=== PATIENT | male | born 1965 | race Caucasian/White ===

== ENCOUNTER 2016-12-21 11:28 | Inpatient (IN) | payer OTHER ==
[2016-12-21 11:51] VITALS: BMI 28.5
--- NOTE | 2016-12-21 12:02 | HP ---
COWS - Scale Resting Pulse: 0= SD 80 or Below Sweatin=Flushed/Facial Moisture Restless Observation: 3= Extraneous Movement Pupil Size: 2= Moderately Dilated Bone or Joint Aches: 2= Severe Diffuse Aches Runny Nose/ Eye Tearin= Runny Nose/Eyes GI Upset > 30mins: 2= Nausea/Diarrhea Tremor Observation: 2= Slight Tremor Visible Yawning Observation: 2= >3x During Session Anxiety or Irritability: 2=Irritable/Anxious Goose Flesh Skin: 0=Smooth Skin COWS Score: 19 CIWA Score - CIWA Score Nausea/Vomitin Muscle Tremors: 3 Anxiety: 3 Agitation: 3 Paroxysmal Sweats: 2 Orientation: 0-Oriented Tacttile Disturbances: 2-Mild Itch/Numbness/Burn Auditory Disturbances: 2-Mild Harshness/Frighten Visual Disturbances: 2-Mild Sensitivity Headache: 2-Mild CIWA-Ar Total Score: 22 Admission ROS BHS - HPI Chief Complaint: i need help to stop using street methadone and alcohol Allergies/Adverse Reactions: Allergies Allergy/AdvReac Type Severity Reaction Status Date / Time No Known Allergies Allergy Verified 12/21/16 12:53 History of Present Illness: this 51 years old [address] with [address] dependence and alcohol dependence,seeking help to stop,last treatment at [facility] 3 weeks ago several admissions in detox but keep relapsing history of hepatitis c insomnia longest period of sobriety 3 years on augmentine for abrasion injury to left upper arm Exam Limitations: No Limitations - Ebola screening Have you traveled outside of the country in the last 21 days: No Have you had contact with anyone from an Ebola affected area: No Have you been sick,other than usual withdrawal symptoms: No Do you have a fever: No - Review of Systems Constitutional: Chills, Diaphoresis, Loss of Appetite, Malaise, Night Sweats, Changes in sleep, Weakness EENT: reports: Tearing, Nose Congestion Respiratory: reports: No Symptoms reported Cardiac: reports: No Symptoms Reported GI: reports: Diarrhea, Nausea, Vomiting, Abdominal cramping : reports: No Symptoms Reported Musculoskeletal: reports: Back Pain, Joint Pain, Muscle Pain, Joint Stiffness Integumentary: reports: Dryness Neuro: reports: Headache, Tremors Endocrine: reports: No Symptoms Reported Hematology: reports: No Symptoms Reported Psychiatric: reports: No Sypmtoms Reported, Judgement Intact, Mood/Affect Appropiate, other (insomnia) Patient History - Patient Medical History Hx Anemia: No Hx Asthma: No Hx Chronic Obstructive Pulmonary Disease (COPD): No Hx Cancer: No Hx Cardiac Disorders: No Hx Congestive Heart Failure: No Hx Hypertension: No Hx Hypercholesterolemia: No Hx Pacemaker: No HX Cerebrovascular Accident: No Hx Seizures: No Hx Dementia: No Hx Diabetes: No Hx Gastrointestinal Disorders: No Hx Liver Disease: No Hx Genitourinary Disorders: No Hx Sexually Transmitted Disorders: No Hx Renal Disease (ESRD): No Hx Thyroid Disease: No Hx Human Immunodeficiency Virus (HIV): No (last 06/24 negative) Hx Hepatitis C: Yes (monitor by pmd) Hx Depression: No Hx Suicide Attempt: No Hx Bipolar Disorder: No Hx Schizophrenia: No Other Medical History: insomnia,nosucidal,no homicidal - Patient Surgical History Past Surgical History: No - PPD History Previous Implant?: Yes Documented Results: Negative w/o proof Implanted On Prior [facility] Admission?: No PPD to be Administered?: Yes - Smoking Cessation Smoking history: Never smoked Hx Chewing Tobacco Use: No - Substance & Tx. History Hx Alcohol Use: Yes Hx Substance Use: Yes Substance Use Type: Alcohol, Opiates Hx Substance Use Treatment: Yes ([facility] 3 weeks ago) Family Disease History - Family Disease History Family Disease History: Other: Father (alcohol,), Brother (alcohol, ) Admission Physical Exam [facility] - Vital Signs Vital Signs: Vital Signs - 24 hr 12/21/16 11:49 Temperature 97.2 F L Pulse Rate 67 Respiratory 20 Rate Blood Pressure 116/67 - Physical General Appearance: Yes: Moderate Distress, Tremorous, Irritable, Sweating, Anxious HEENTM: Yes: Hearing grossly Normal, Normal ENT Inspection, CAL, Pharynx Normal Respiratory: Yes: Lungs Clear, Normal Breath Sounds, No Respiratory Distress Neck: Yes: Within Normal Limits, Supple, Trachea in good position Breast: Yes: Within Normal Limits Cardiology: Yes: Within Normal Limits, Regular Rhythm, Regular Rate, S1, S2 Abdominal: Yes: Within Normal Limits, Normal Bowel Sounds, Non Tender, Flat, Soft Genitourinary: Yes: Within Normal Limits Back: Yes: Muscle Spasm Musculoskeletal: Yes: Back pain, Joint Stiffness, Muscle Pain Extremities: Yes: Tremors, Other (abasion of left upper arm) Neurological: Yes: Fully Oriented, Alert, Motor Strength 5/5 Integumentary: Yes: Dry (abrasion of left upper arm) Lymphatic: Yes: Within Normal Limits - Diagnostic (1) Alcohol dependence with uncomplicated withdrawal Current Visit: Yes Status: Acute (2) Opioid dependence with withdrawal Current Visit: Yes Status: Acute (3) Insomnia Current Visit: Yes Status: Acute (4) Hepatitis C Current Visit: Yes Status: Acute (5) Abrasion of left upper arm Current Visit: Yes Status: Acute Cleared for Admission [facility] - Detox or Rehab [facility] Level of Care: Medically Managed Detox Regimen/Protocol: Methadone/Librium [facility] Breath Alcohol Content Breath Alcohol Content: 0.005 Urine Drug Screen - Results Drug Screen Negative: No Urine Drug Screen Results: BZO-Benzodiazepines, MTD-Methadone
[2016-12-21] MEDS ORDERED: guaiFENesin/D-METHORPHAN HB 10 ML UNIT-DOSE CUPS PO PRN (13:19)
[2016-12-21] MEDS ORDERED: chlordiazePOXIDE HCL 25 MG CAPSULE PO ONE (13:19)
[2016-12-21] MEDS ORDERED: MENTHOL/PHENOL 1 EACH UD MM PRN (13:19)
[2016-12-21] MEDS ORDERED: METHADONE HCL 10 MG TABLET (FOR DETOX USE ONLY) PO ONE ×2 (13:19→23:00)
[2016-12-21] MEDS ORDERED: LOPERAMIDE HCL 2 MG CAPSULE PO PRN (13:19)
[2016-12-21] MEDS ORDERED: chlordiazePOXIDE HCL 25 MG CAPSULE PO PRN (13:19)
[2016-12-21] MEDS ORDERED: P-EPHED 60MG/TRIPROLIDI 2.5MG TABLET PO PRN (13:19)
[2016-12-21] MEDS ORDERED: MAG HYDROX/AL HYDROX/SIMETH 30 ML UNIT-DOSE CUP PO PRN (13:19)
[2016-12-21] MEDS ORDERED: MAGNESIUM CITRATE 300 ML BOTTLE PO PRN (13:19)
[2016-12-21] MEDS ORDERED: hydrOXYzine PAMOATE 25 MG CAPSULE (FP) PO PRN (13:19)
[2016-12-21 15:58] LABS: URINE APPEARANCE CLEAR; URINE BILIRUBIN NEGATIVE (NEGATIVE); URINE BLOOD NEGATIVE (NEGATIVE); URINE COLOR YELLOW; URINE GLUCOSE (UA) NEGATIVE (NEGATIVE); URINE KETONE NEGATIVE (NEGATIVE); URINE LEUK ESTERASE NEGATIVE (NEGATIVE); URINE NITRITE NEGATIVE (NEGATIVE); URINE PROTEIN NEGATIVE (NEGATIVE); URINE UROBILINOGEN 4.0 E.U/dl mg/dL (0.2-1.0)
[2016-12-21] MEDS: chlordiazePOXIDE HCL 25 MG CAPSULE PO SCH ×2 (17:40→22:29)
[2016-12-21] MEDS: AMOX TR/POT CLAV 875MG/125MG TABLETS (FP) PO SCH (17:42)
[2016-12-21] MEDS: BACITRACIN 15 GM TUBE TOPICAL OINTMENT TP SCH (22:28)
[2016-12-21] MEDS: THIAMINE HCL 100 MG TABLET (FP) PO SCH (22:29)
[2016-12-21] MEDS: diphenhydrAMINE HCL 50 MG CAPSULE PO PRN (22:29)
[2016-12-22] MEDS: chlordiazePOXIDE HCL 25 MG CAPSULE PO SCH ×4 (05:04→22:14)
[2016-12-22] MEDS: ACETAMINOPHEN 325 MG TABLET (FP) PO PRN (07:08)
--- NOTE | 2016-12-22 08:38 | CONSULT ---
[facility] Psychiatric Consult - Data Date of interview: 12/22/16 Admission source: [facility] Identifying data: This is 51 years old male with no psychiatric hospitalization history intoxiocated with: Alcohol and Opioids Substance Abuse History: - Smoking Cessation. Smoking history: Never smoked. Hx Chewing Tobacco Use: No. - Substance & Tx. History. Hx Alcohol Use: Yes. Hx Substance Use: Yes. Substance Use Type: Alcohol, Opiates. Hx Substance Use Treatment: Yes ([facility] 3 weeks ago) Medical History: HepCX+, history of MMTP, Psychiatric History: Patient reports history of depression, reports taking prior to admissionTrazodone 100mg po qhs, refusing to restart Trazodone during Detox protocol Physical/Sexual Abuse/Trauma History: Denies Additional Comment: Obnservation. Detox Unit Care [facility]Protoicol Mental Status Exam - Mental Status Exam Alert and Oriented to: Person Cognitive Function: Fair Patient Appearance: Unkempt Mood: Sad Affect: Flat Patient Behavior: Sedated Speech Pattern: Delayed Voice Loudness: Normal, Mildly Soft/Quiet Thought Process: Goal Oriented Thought Disorder: Being Controlled Hallucinations: Denies Suicidal Ideation: Denies Homicidal Ideation: Denies Insight/Judgement: Fair Sleep: Difficulty falling asleep Appetite: Weight loss Muscle strength/Tone: Mild Hypotonicity Gait/Station: Shuffling Additional Comments: Obnservation. Detox Unit Care [facility] Psychiatric Findings - Problem List (Dennis 1, 2,3) (1) Alcohol dependence with uncomplicated withdrawal Current Visit: Yes Status: Acute (2) Opioid dependence with withdrawal Current Visit: Yes Status: Acute (3) Drug-induced mood disorder Current Visit: Yes Status: Acute - Initial Treatment Plan Initial Treatment Plan: Obnservation. Detox Unit Care vProtoicol. Refusing medications
[2016-12-22] MEDS ORDERED: METHADONE HCL 10 MG TABLET (FOR DETOX USE ONLY) PO SCH (10:00)
[2016-12-22 10:01] LABS: MCH 32.5 pg (25.7-33.7); MCHC 34.8 g/dl (32.0-35.9); MEAN CELL VOLUME 93.3 fl (80-96); MEAN PLT VOLUME 8.8 fl (7.5-11.1); PLATELET COUNT 77 K/MM3 (134-434); RDW 15.1 % (11.9-15.9); WHITE BLOOD COUNT 2.1 K/mm3 (4.0-10.0)
[2016-12-22] MEDS: AMOX TR/POT CLAV 875MG/125MG TABLETS (FP) PO SCH ×2 (10:08→17:31)
[2016-12-22] MEDS: PRENATAL VITAMINS W/ FOLIC ACID TABLET (FP) PO SCH (10:08)
[2016-12-22 10:20] LABS: ALBUMIN 2.6 g/dl (3.4-5.0); ANION GAP 5 (8-16); CALCIUM 8.1 mg/dL (8.5-10.1); CO2 29 mmol/L (21-32); GLUCOSE,RANDOM 100 mg/dL (74-106)
[2016-12-22 10:24] LABS: ALK PHOS 103 U/L (45-117); BILIRUBIN,TOTAL 0.7 mg/dL (0.2-1.0); CREATININE 0.6 mg/dL (0.7-1.3); SGOT/AST 39 U/L (15-37); SGPT/ALT 28 U/L (12-78); TOT PROT 5.6 g/dl (6.4-8.2)
[2016-12-22] MEDS: BACITRACIN 15 GM TUBE TOPICAL OINTMENT TP SCH (12:38)
[2016-12-22] MEDS: BACITRACIN 0.9 GM PACKET TP SCH ×2 (12:42→22:14)
[2016-12-22] MEDS: MAGNESIUM HYDROX 2400MG/30ML ORAL SUSPENSION 30 ML CUP PO PRN (12:42)
--- NOTE | 2016-12-22 12:47 | EKG ---
Test Reason : Blood Pressure : / mmHG Vent. Rate : 069 BPM Atrial Rate : 069 BPM P-R Int : 166 ms QRS Dur : 098 ms QT Int : 438 ms P-R-T Axes : 052 036 027 degrees QTc Int : 469 ms NORMAL SINUS RHYTHM NORMAL ECG NO PREVIOUS ECGS AVAILABLE Confirmed by CIRO IVERSON MD ([id number]) on 12/22/2016 12:47:06 PM Referred By: Confirmed By:CIRO IVERSON MD
--- NOTE | 2016-12-22 14:30 | PN ---
[facility] CIWA - CIWA Score Nausea/Vomitin Muscle Tremors: 3 Anxiety: 4-Mod. Anxious/Guarded Agitation: 1-Slight > Activity Paroxysmal Sweats: 3 Orientation: 0-Oriented Tacttile Disturbances: 0-None Auditory Disturbances: 1-Very Mild Visual Disturbances: 2-Mild Sensitivity Headache: 0-None Present CIWA-Ar Total Score: 17 S COWS - Scale Resting Pulse: 0= [place] 80 or Below Sweatin= Chills/Flushing Restless Observation: 1= Difficult to Sit Still Pupil Size: 0= Normal to Room Light Bone or Joint Aches: 2= Severe Diffuse Aches Runny Nose/ Eye Tearin= Nasal Congestion GI Upset > 30mins: 1= Stomach Cramp Tremor Observation of Outstretched Hands: 2= Slight Tremor Visible Yawning Observation: 1= 1-2x During Session Anxiety or Irritability: 2=Irritable/Anxious Goose Flesh Skin: 3=Piloerection COWS Score: 14 [facility] Progress Note (SOAP) Subjective: Tremors, Constipation, Sweating, Body Aches. Objective: PT. A & O X 3, OBSERVED AMBULATING ON UNIT. NO ACUTE DISTRESS. Vital Signs Temperature 97.0 F L 12/22/16 14:06 Pulse Rate 63 12/22/16 14:06 Respiratory Rate 20 12/22/16 14:06 Blood Pressure 96/57 12/22/16 14:06 O2 Sat by Pulse Oximetry (%) Laboratory Tests 12/21/16 12/22/16 12/22/16 13:52 06:30 06:30 WBC 2.1 L RBC 3.69 L Hgb 12.0 Hct 34.4 L MCV 93.3 MCH 32.5 MCHC 34.8 RDW 15.1 Plt Count 77 L MPV 8.8 Sodium 142 Potassium 4.0 Chloride 108 H Carbon Dioxide 29 Anion Gap 5 L BUN 8 Creatinine 0.6 L Creat Clearance w eGFR > 60 Random Glucose 100 Calcium 8.1 L Total Bilirubin 0.7 AST 39 H ALT 28 Alkaline Phosphatase 103 Total Protein 5.6 L Albumin 2.6 L Urine Color Yellow Urine Appearance Clear Urine pH 6.0 Ur Specific [place] 1.015 Urine Protein Negative Urine Glucose (UA) Negative Urine Ketones Negative Urine Blood Negative Urine Nitrite Negative Urine Bilirubin Negative Urine Urobilinogen 4.0 e.u/dl Ur Leukocyte Esterase Negative RPR Titer 12/22/16 06:30 WBC RBC Hgb Hct MCV MCH MCHC RDW Plt Count MPV Sodium Potassium Chloride Carbon Dioxide Anion Gap BUN Creatinine Creat Clearance w eGFR Random Glucose Calcium Total Bilirubin AST ALT Alkaline Phosphatase Total Protein Albumin Urine Color Urine Appearance Urine pH Ur Specific [place] Urine Protein Urine Glucose (UA) Urine Ketones Urine Blood Urine Nitrite Urine Bilirubin Urine Urobilinogen Ur Leukocyte Esterase RPR Titer Nonreactive LABS NOTED. 12/22/16 14:26 Assessment: 12/22/16 14:27 WITHDRAWAL SYMPTOMS. Plan: CONTINUE DETOX.
[2016-12-22] MEDS: diphenhydrAMINE HCL 50 MG CAPSULE PO PRN (22:14)
[2016-12-22] MEDS: THIAMINE HCL 100 MG TABLET (FP) PO SCH (22:14)
[2016-12-23] MEDS: chlordiazePOXIDE HCL 25 MG CAPSULE PO SCH ×2 (05:53→10:03)
[2016-12-23] MEDS: MAGNESIUM HYDROX 2400MG/30ML ORAL SUSPENSION 30 ML CUP PO PRN (05:53)
[2016-12-23] MEDS: METHADONE HCL 5 MG TABLET (FOR DETOX USE ONLY) PO SCH (10:03)
[2016-12-23] MEDS: BACITRACIN 0.9 GM PACKET TP SCH ×2 (10:03→22:21)
[2016-12-23] MEDS: AMOX TR/POT CLAV 875MG/125MG TABLETS (FP) PO SCH ×2 (10:03→17:30)
[2016-12-23] MEDS: PRENATAL VITAMINS W/ FOLIC ACID TABLET (FP) PO SCH (10:03)
[2016-12-23] MEDS: DOCUSATE SODIUM 100 MG CAPSULE (FP) PO SCH ×2 (10:05→22:21)
--- NOTE | 2016-12-23 11:10 | PN ---
[facility] CIWA - CIWA Score Nausea/Vomitin-Mild Nausea/No Vomiting Muscle Tremors: 4-Moderate,w/Arms Extend Anxiety: 4-Mod. Anxious/Guarded Agitation: 2 Paroxysmal Sweats: 3 Orientation: 0-Oriented Tacttile Disturbances: 3-Moderate Itch/Numb/Burn Auditory Disturbances: 0-None Visual Disturbances: 1-Very Mild Sensitivity Headache: 0-None Present CIWA-Ar Total Score: 18 [facility] COWS - Scale Resting Pulse: 0= [place] 80 or Below Sweatin=Flushed/Facial Moisture Restless Observation: 1= Difficult to Sit Still Pupil Size: 0= Normal to Room Light Bone or Joint Aches: 2= Severe Diffuse Aches Runny Nose/ Eye Tearin= Nasal Congestion GI Upset > 30mins: 1= Stomach Cramp Tremor Observation of Outstretched Hands: 2= Slight Tremor Visible Yawning Observation: 1= 1-2x During Session Anxiety or Irritability: 2=Irritable/Anxious Goose Flesh Skin: 3=Piloerection COWS Score: 15 [facility] Progress Note (SOAP) Subjective: Tremors, Stomach cramping, Sweating, Body Aches, Constipation, nausea. Objective: PT. A & O X 3, OBSERVED AMBULATING ON UNIT. NO ACUTE DISTRESS. 12/23/16 11:07 Vital Signs Temperature 97.6 F 12/23/16 09:42 Pulse Rate 62 12/23/16 09:42 Respiratory Rate 18 12/23/16 09:42 Blood Pressure 98/58 12/23/16 09:42 O2 Sat by Pulse Oximetry (%) Laboratory Tests 12/21/16 12/22/16 12/22/16 13:52 06:30 06:30 WBC 2.1 L RBC 3.69 L Hgb 12.0 Hct 34.4 L MCV 93.3 MCH 32.5 MCHC 34.8 RDW 15.1 Plt Count 77 L MPV 8.8 Sodium 142 Potassium 4.0 Chloride 108 H Carbon Dioxide 29 Anion Gap 5 L BUN 8 Creatinine 0.6 L Creat Clearance w eGFR > 60 Random Glucose 100 Calcium 8.1 L Total Bilirubin 0.7 AST 39 H ALT 28 Alkaline Phosphatase 103 Total Protein 5.6 L Albumin 2.6 L Urine Color Yellow Urine Appearance Clear Urine pH 6.0 Ur Specific [place] 1.015 Urine Protein Negative Urine Glucose (UA) Negative Urine Ketones Negative Urine Blood Negative Urine Nitrite Negative Urine Bilirubin Negative Urine Urobilinogen 4.0 e.u/dl Ur Leukocyte Esterase Negative RPR Titer 12/22/16 06:30 WBC RBC Hgb Hct MCV MCH MCHC RDW Plt Count MPV Sodium Potassium Chloride Carbon Dioxide Anion Gap BUN Creatinine Creat Clearance w eGFR Random Glucose Calcium Total Bilirubin AST ALT Alkaline Phosphatase Total Protein Albumin Urine Color Urine Appearance Urine pH Ur Specific [place] Urine Protein Urine Glucose (UA) Urine Ketones Urine Blood Urine Nitrite Urine Bilirubin Urine Urobilinogen Ur Leukocyte Esterase RPR Titer Nonreactive LABS NOTED. Assessment: 12/23/16 11:08 WITHDRAWAL SYMPTOMS. Plan: CONTINUE DETOX. INCREASE PO FLUID INTAKE. REPEAT CBC TOMORROW AM FOR ABNORMAL ADMISSION LEVELS. COLACE, 100 MG PO BID FOR CONSTIPATION.
[2016-12-23] MEDS: chlordiazePOXIDE 5 MG CAPSULE PO SCH ×2 (17:03→22:21)
[2016-12-23] MEDS: THIAMINE HCL 100 MG TABLET (FP) PO SCH (22:21)
[2016-12-23] MEDS: diphenhydrAMINE HCL 50 MG CAPSULE PO PRN (22:22)
[2016-12-24] MEDS: chlordiazePOXIDE 5 MG CAPSULE PO SCH ×2 (05:25→10:15)
[2016-12-24] MEDS: METHADONE HCL 5 MG TABLET (FOR DETOX USE ONLY) PO SCH (10:15)
[2016-12-24] MEDS: DOCUSATE SODIUM 100 MG CAPSULE (FP) PO SCH ×2 (10:15→22:20)
[2016-12-24] MEDS: CYCLOBENZAPRINE HCL 10 MG TABLET (FP) PO PRN (10:15)
[2016-12-24] MEDS: PRENATAL VITAMINS W/ FOLIC ACID TABLET (FP) PO SCH (10:15)
[2016-12-24] MEDS: BACITRACIN 0.9 GM PACKET TP SCH ×2 (10:15→22:20)
[2016-12-24] MEDS: ACETAMINOPHEN 325 MG TABLET (FP) PO PRN (10:16)
[2016-12-24 10:21] LABS: BASOPHIL 0.3 % (0-2.0); EOSINOPHIL 4.7 % (0-4.5); MCH 32.8 pg (25.7-33.7); MCHC 34.9 g/dl (32.0-35.9); MEAN CELL VOLUME 93.9 fl (80-96); MEAN PLT VOLUME 9.1 fl (7.5-11.1); NEUTROPHILS 54.1 % (42.8-82.8); PLATELET COUNT 76 K/MM3 (134-434); RDW 15.2 % (11.9-15.9); WHITE BLOOD COUNT 2.4 K/mm3 (4.0-10.0)
[2016-12-24] MEDS: AMOX TR/POT CLAV 875MG/125MG TABLETS (FP) PO SCH ×2 (10:44→17:32)
--- NOTE | 2016-12-24 11:01 | PN ---
[facility] Progress Note (SOAP) Subjective: Tremors, Body Aches, H/A, Sweating. Objective: PT. A & O X 3, OBSERVED AMBULATING ON UNIT. NO ACUTE DISTRESS. 12/24/16 10:57 Vital Signs Temperature 97.5 F L 12/24/16 09:44 Pulse Rate 67 12/24/16 09:44 Respiratory Rate 18 12/24/16 09:44 Blood Pressure 103/61 12/24/16 09:44 O2 Sat by Pulse Oximetry (%) Laboratory Tests 12/21/16 12/22/16 12/22/16 13:52 06:30 06:30 WBC 2.1 L RBC 3.69 L Hgb 12.0 Hct 34.4 L MCV 93.3 MCH 32.5 MCHC 34.8 RDW 15.1 Plt Count 77 L MPV 8.8 Neutrophils % Lymphocytes % Monocytes % Eosinophils % Basophils % Sodium 142 Potassium 4.0 Chloride 108 H Carbon Dioxide 29 Anion Gap 5 L BUN 8 Creatinine 0.6 L Creat Clearance w eGFR > 60 Random Glucose 100 Calcium 8.1 L Total Bilirubin 0.7 AST 39 H ALT 28 Alkaline Phosphatase 103 Total Protein 5.6 L Albumin 2.6 L Urine Color Yellow Urine Appearance Clear Urine pH 6.0 Ur Specific [place] 1.015 Urine Protein Negative Urine Glucose (UA) Negative Urine Ketones Negative Urine Blood Negative Urine Nitrite Negative Urine Bilirubin Negative Urine Urobilinogen 4.0 e.u/dl Ur Leukocyte Esterase Negative RPR Titer 12/22/16 12/24/16 06:30 06:30 WBC 2.4 L RBC 3.66 L Hgb 12.0 Hct 34.4 L MCV 93.9 MCH 32.8 MCHC 34.9 RDW 15.2 Plt Count 76 L MPV 9.1 Neutrophils % 54.1 Lymphocytes % 28.2 Monocytes % 12.7 H Eosinophils % 4.7 H Basophils % 0.3 Sodium Potassium Chloride Carbon Dioxide Anion Gap BUN Creatinine Creat Clearance w eGFR Random Glucose Calcium Total Bilirubin AST ALT Alkaline Phosphatase Total Protein Albumin Urine Color Urine Appearance Urine pH Ur Specific [place] Urine Protein Urine Glucose (UA) Urine Ketones Urine Blood Urine Nitrite Urine Bilirubin Urine Urobilinogen Ur Leukocyte Esterase RPR Titer Nonreactive LABS NOTED. RESULTS OF REPEAT CBC DRAWN EARLIER THIS AM NOTED. 12/24/16 11:00 Assessment: 12/24/16 10:58 WITHDRAWAL SYMPTOMS. Plan: CONTINUE DETOX.
[2016-12-24] MEDS: chlordiazePOXIDE HCL 10 MG CAPSULE PO SCH ×2 (17:32→22:20)
[2016-12-24] MEDS: diphenhydrAMINE HCL 50 MG CAPSULE PO PRN (22:20)
[2016-12-24] MEDS: THIAMINE HCL 100 MG TABLET (FP) PO SCH (22:20)
[2016-12-25] MEDS: chlordiazePOXIDE HCL 10 MG CAPSULE PO SCH ×2 (05:49→10:14)
[2016-12-25] MEDS: IBUPROFEN 400 MG TABLET (FP) PO PRN (05:50)
[2016-12-25] MEDS: CYCLOBENZAPRINE HCL 10 MG TABLET (FP) PO PRN ×2 (05:50→22:15)
[2016-12-25] MEDS ORDERED: METHADONE HCL 10 MG TABLET (FOR DETOX USE ONLY) PO SCH (10:00)
[2016-12-25] MEDS: BACITRACIN 0.9 GM PACKET TP SCH ×2 (10:14→22:15)
[2016-12-25] MEDS: AMOX TR/POT CLAV 875MG/125MG TABLETS (FP) PO SCH ×2 (10:14→17:39)
[2016-12-25] MEDS: DOCUSATE SODIUM 100 MG CAPSULE (FP) PO SCH ×2 (10:14→22:15)
[2016-12-25] MEDS: PRENATAL VITAMINS W/ FOLIC ACID TABLET (FP) PO SCH (10:14)
[2016-12-25] MEDS: ACETAMINOPHEN 325 MG TABLET (FP) PO PRN (10:15)
--- NOTE | 2016-12-25 12:52 | PN ---
[facility] Progress Note (SOAP) Subjective: Body Aches, Sweating, Lower Back Ache, Tremors. Objective: PT. A & O X 3, OBSERVED AMBULATING ON UNIT. NO ACUTE DISTRESS. 12/25/16 12:49 Vital Signs Temperature 96 F L 12/25/16 09:15 Pulse Rate 66 12/25/16 09:15 Respiratory Rate 12/25/16 09:15 Blood Pressure 103/60 12/25/16 09:15 O2 Sat by Pulse Oximetry (%) Laboratory Tests 12/21/16 12/22/16 12/22/16 13:52 06:30 06:30 WBC 2.1 L RBC 3.69 L Hgb 12.0 Hct 34.4 L MCV 93.3 MCH 32.5 MCHC 34.8 RDW 15.1 Plt Count 77 L MPV 8.8 Neutrophils % Lymphocytes % Monocytes % Eosinophils % Basophils % Sodium 142 Potassium 4.0 Chloride 108 H Carbon Dioxide 29 Anion Gap 5 L BUN 8 Creatinine 0.6 L Creat Clearance w eGFR > 60 Random Glucose 100 Calcium 8.1 L Total Bilirubin 0.7 AST 39 H ALT 28 Alkaline Phosphatase 103 Total Protein 5.6 L Albumin 2.6 L Urine Color Yellow Urine Appearance Clear Urine pH 6.0 Ur Specific [place] 1.015 Urine Protein Negative Urine Glucose (UA) Negative Urine Ketones Negative Urine Blood Negative Urine Nitrite Negative Urine Bilirubin Negative Urine Urobilinogen 4.0 e.u/dl Ur Leukocyte Esterase Negative RPR Titer 12/22/16 12/24/16 06:30 06:30 WBC 2.4 L RBC 3.66 L Hgb 12.0 Hct 34.4 L MCV 93.9 MCH 32.8 MCHC 34.9 RDW 15.2 Plt Count 76 L MPV 9.1 Neutrophils % 54.1 Lymphocytes % 28.2 Monocytes % 12.7 H Eosinophils % 4.7 H Basophils % 0.3 Sodium Potassium Chloride Carbon Dioxide Anion Gap BUN Creatinine Creat Clearance w eGFR Random Glucose Calcium Total Bilirubin AST ALT Alkaline Phosphatase Total Protein Albumin Urine Color Urine Appearance Urine pH Ur Specific [place] Urine Protein Urine Glucose (UA) Urine Ketones Urine Blood Urine Nitrite Urine Bilirubin Urine Urobilinogen Ur Leukocyte Esterase RPR Titer Nonreactive LABS NOTED. Assessment: 12/25/16 12:50 WITHDRAWAL SYMPTOMS. Plan: CONTINUE DETOX.
[2016-12-25] MEDS: diphenhydrAMINE HCL 50 MG CAPSULE PO PRN (22:15)
[2016-12-25] MEDS: THIAMINE HCL 100 MG TABLET (FP) PO SCH (22:15)
[2016-12-26] MEDS: IBUPROFEN 400 MG TABLET (FP) PO PRN (05:47)
[2016-12-26] MEDS ORDERED: METHADONE HCL 5 MG TABLET (FOR DETOX USE ONLY) PO SCH (06:00)
[2016-12-26 09:15] VITALS: BP 102/61; PULSE 64; TEMP 97.5
--- NOTE | 2016-12-26 12:04 | DS ---
[facility] Detox Discharge Summary Admission Date: 12/21/16 Discharge Date: 12/26/16 - History Present History: Alcohol Dependence, Opioid Dependence Additional Comments: PATIENT GOING HOME AND RETURNING TO PREVIOUS OUTPATIENT TREATMENT DAY PROGRAM ( PATIENT UNABLE TO RECALL NAME OF PROGRAM). ADVISED PATIENT TO FOLLOW-UP THERE FOR AFTERCARE. ALSO ADVISED PATIENT TO COMPLETE FULL COURSE ANTIBIOTIC (AUGMENTIN) PRESCRIBED TO HIM PRIOR TO ADMISSION TO DETOX (AND CONTINUED WHILE ADMITTED TO DETOX) AND TO THEN FOLLOW-UP FOR MEDICAL CARE WITH HIS PRIMARY CARE MEDICAL PROVIDER ( PATIENT REPORTS THAT HE CURRENTLY HAS ONE, BUT UNABLE TO RECALL NAME AT THIS TIME). Pertinent Past History: Hep C, Abrasion of Left arm, Insomnia. - Physical Exam Results Vital Signs: Vital Signs Temperature 97.5 F L 12/26/16 09:14 Pulse Rate 64 12/26/16 09:14 Respiratory Rate 18 12/26/16 09:14 Blood Pressure 102/61 12/26/16 09:14 O2 Sat by Pulse Oximetry (%) Pertinent Admission Physical Exam Findings: WITHDRAWAL SYMPTOMS. Laboratory Tests 12/21/16 12/22/16 12/22/16 13:52 06:30 06:30 WBC 2.1 L RBC 3.69 L Hgb 12.0 Hct 34.4 L MCV 93.3 MCH 32.5 MCHC 34.8 RDW 15.1 Plt Count 77 L MPV 8.8 Neutrophils % Lymphocytes % Monocytes % Eosinophils % Basophils % Sodium 142 Potassium 4.0 Chloride 108 H Carbon Dioxide 29 Anion Gap 5 L BUN 8 Creatinine 0.6 L Creat Clearance w eGFR > 60 Random Glucose 100 Calcium 8.1 L Total Bilirubin 0.7 AST 39 H ALT 28 Alkaline Phosphatase 103 Total Protein 5.6 L Albumin 2.6 L Urine Color Yellow Urine Appearance Clear Urine pH 6.0 Ur Specific [place] 1.015 Urine Protein Negative Urine Glucose (UA) Negative Urine Ketones Negative Urine Blood Negative Urine Nitrite Negative Urine Bilirubin Negative Urine Urobilinogen 4.0 e.u/dl Ur Leukocyte Esterase Negative RPR Titer 12/22/16 12/24/16 06:30 06:30 WBC 2.4 L RBC 3.66 L Hgb 12.0 Hct 34.4 L MCV 93.9 MCH 32.8 MCHC 34.9 RDW 15.2 Plt Count 76 L MPV 9.1 Neutrophils % 54.1 Lymphocytes % 28.2 Monocytes % 12.7 H Eosinophils % 4.7 H Basophils % 0.3 Sodium Potassium Chloride Carbon Dioxide Anion Gap BUN Creatinine Creat Clearance w eGFR Random Glucose Calcium Total Bilirubin AST ALT Alkaline Phosphatase Total Protein Albumin Urine Color Urine Appearance Urine pH Ur Specific [place] Urine Protein Urine Glucose (UA) Urine Ketones Urine Blood Urine Nitrite Urine Bilirubin Urine Urobilinogen Ur Leukocyte Esterase RPR Titer Nonreactive LABS NOTED. - Treatment Hospital Course: Detox Protocol Followed, Detoxed Safely, Responded well, Discharged Condition Good Patient has Accepted a Rehab Referral to: PATIENT TO GO HOME AND RESUME PREVIOUS OUTPATIENT PROGRAM. SEE ABOVE. - Medication Discharge Medications: Ambulatory Orders Amoxicillin/Potassium Clav [Amox-Clav 875-125 mg Tablet] 1 each PO BID 12/21/16 Trazodone HCl [Desyrel -] 100 mg PO HS 12/21/16 - Diagnosis (1) Abrasion of left upper arm Status: Acute (2) Alcohol dependence with uncomplicated withdrawal Status: Acute (3) Drug-induced mood disorder Status: Acute (4) Hepatitis C Status: Chronic Qualifiers: Viral hepatitis chronicity: chronic Hepatic coma status: without hepatic coma Qualified Code(s): B18.2 - Chronic viral hepatitis C (5) Insomnia Status: Acute Qualifiers: Insomnia type: unspecified Qualified Code(s): G47.00 - Insomnia, unspecified (6) Opioid dependence with withdrawal Status: Acute - AMA Did Patient Leave Against Medical Advice: No
== END 2016-12-26 10:00 | disposition home or self-care (01) | DRG 773 ==
LOC: YASAS 11:28 → Y3N 12:42
PROVIDERS: ADMIT Internal Medicine; ATTEND Internal Medicine
PROC: HZ2ZZZZ Detoxification Services for Substance Abuse Treatment (ICD-10-PCS; principal; 2016-12-26)
DX: F11.23 Opioid dependence with withdrawal (principal); F10.230 Alcohol dependence with withdrawal, uncomplicated; F19.24 Other psychoactive substance dependence with psychoactive substance-induced mood disorder; G47.00 Insomnia, unspecified; B18.2 Chronic viral hepatitis C; S40.812A Abrasion of left upper arm, initial encounter; X58.XXXA Exposure to other specified factors, initial encounter; Y93.9 Activity, unspecified
CPT/HCPCS: 36415; 80053; 81003; 85025; 85027; 86593; 93005; 93010